=== PATIENT | female | born 1975 | race Caucasian/White ===

== ENCOUNTER 2019-04-28 14:10 | Inpatient (IN) ==
--- NOTE | 2019-04-28 15:11 | Diag Imaging Result Doc PS360 ---
EXAM: FOOT COMPLETE LEFT HISTORY: diabetic foot ulcer TECHNIQUE: Three views COMPARISON: None. FINDINGS: Soft tissue ulcer near the first metatarsal phalangeal joint. Lucent bone in the distal first metatarsal and proximal portion of the proximal phalanx of the great toe. Mild arthritis. IMPRESSION: Lucent bone about the first metatarsal phalangeal joint may represent osteomyelitis. MRI is recommended. Electronically signed by Jaden Henderson 04/28/2019 3:09 PM
[2019-04-28 15:26] LABS: BASO# 0.12 X1000 (0.0-0.2); BASO% 1.4 % (0.0-0.8); EOS# 0.31 X1000 (0.0-0.7); EOS% 3.7 % (0.0-10.0); HEMATOCRIT 44.1 % (37.0-47.0); IMM GRAN# 0.02 X1000 (0.0-0.04); IMM GRAN% 0.2 % (0.0-0.5); LYMPH# 2.19 X1000 (1.2-3.4); LYMPH% 26.2 % (20.5-51.1); MCH 26.6 PG (27-31); MCHC 31.7 g/dL (33-37); MCV 83.8 FL (81-99); MONO# 0.78 X1000 (0.11-0.59); MONO% 9.3 % (1.7-9.3); MPV 11.2 FL (7.4-10.4); NEUT# 4.93 X1000 (1.4-6.5); NEUT% 59.2 % (42.2-75.2); PLT 248 X1000 (130-400); RBC 5.26 XMIL (4.2-5.4); WBC 8.35 X1000 (4.8-10.8)
[2019-04-28 15:35] LABS: ESTIMATED GFR > 60
[2019-04-28 15:58] LABS: AGAP 16; ALKALINE PHOSPHATASE 120 U/L (32-104); BUN 8 mg/dL (8-22); CALCIUM 9.6 mg/dL (8.8-10.2); CHLORIDE 84 mmol/L (98-107); COSMO 283; CREATININE 0.7 mg/dL (0.5-0.9); GLUCOSE 289 mg/dL (70-104); GOT 13 U/L (10-30); GPT 7 U/L (10-36); SODIUM 137 mmol/L (136-145); TCO2 38 mmol/L (25-35); TOTAL PROTEIN 8.8 g/dL (6.3-8.3)
[2019-04-28 15:59] LABS: POTASSIUM 2.5 mmol/L (3.5-5.1)
[2019-04-28] MEDS ORDERED: KLOR-CON PO ONE (16:22)
--- NOTE | 2019-04-28 16:29 | PROVIDER DOCUMENTATION ---
This chart was entered by Akua Craig Scribe, acting as scribe for Teena Horn MD. HPI-Rash/Wound/ReCheck - General Chief Complaint: Sores/Lesions Stated Complaint: ULCER OF RIGHT FOOT Time Seen by Provider: 04/28/19 14:32 Source: patient, family Allergies/Adverse Reactions: Allergies Allergy/AdvReac Type Severity Reaction Status Date / Time Penicillins Allergy ANAPHYLAXIS Verified 04/28/19 14:24 Sulfa (Sulfonamide AdvReac Unknown Verified 04/28/19 14:24 Antibiotics) - History of Present Illness-Dermatology Nature of Presenting Problem: 44 yowf presents to the ed with c/o diabetic foot ulceration that is chronic and skin breakdown of medial region of great toe. pt sts has recently been dc from [facility] after reciving IV abx but has had no improvement of wound Location: reports: feet (left) Quality: reports: painful Severity: reports: moderate Onset/Duration: reports: other (4 years) Timing: reports: still present, constant Context/Associated Symptoms: reports: lesion Locality of Occurance: Home Similar Symptoms Previously?: Yes (been 4 years with same wound) Recently seen or treated by another doctor?: Yes ([facility]) Review of Systems - Adult - REVIEW OF SYSTEMS - ADULT Constitutional: denies: chills, fever Eyes: reports: no symptoms reported Ears, Nose, Mouth & Throat: reports: no symptoms reported Cardiovascular: denies: chest pain, palpitations, syncope Respiratory: denies: cough, shortness of breath, wheezing Gastrointestinal: denies: diarrhea, nausea, vomiting Genitourinary: reports: no symptoms reported Musculoskeletal: denies: back pain, neck pain Integumentary: reports: see HPI, skin sores/ulcer Neurological: denies: dizziness/vertigo, headache/migraines Psychiatric: reports: no symptoms reported Endocrine: reports: no symptoms reported Hematologic/Lymphatic: reports: no symptoms reported Allergic/Immunologic: reports: no symptoms reported All Other Systems: Reviewed and Negative Past History - Adult - PAST MEDICAL HISTORY-ADULT Review of Records: reports: Old Records Reviewed, Nursing Assessment Review, Medications Reviewed, Social history reviewed & non-contributory. Major Childhood Illnesses: reports: denies history Cardiovascular: reports: denies history Respiratory: reports: denies history Gastrointestinal: reports: denies history Obstetrical/Gynecological: reports: denies history Genitourinary: reports: denies history Musculoskeletal: reports: denies history Hand Dominance: Right Handed Neurological: reports: denies history Psychiatric: reports: denies history Endocrine/Immune: reports: Diabetes Diabetes Type: Type 2 Other Conditions: reports: denies history - PRIOR SURGERIES/PROCEDURES Surgical/Procedure History: reports: hysterectomy, - IMMUNIZATION STATUS Childhood Immunizations: See Nurse Assessment Flu Vaccine: See Nurse Assessment - FAMILY HISTORY Family History: reviewed, not pertinent - SOCIAL HISTORY Smoking: cigarettes, less than 1 pack/day Provider spent 3-5 mins advising pt. on dangers of tobacco.: Discussed manners to quit use, and f/u contacts for add'l counseling. Substance Use: denies Living Situation: family Physical Exam-General - PHYSICAL EXAM-ADULT Initial Vital Signs Reviewed: Yes - CONSTITUTIONAL General Appearance: appears well, alert, no apparent distress - EYES Eyes: PERRL/EOMI, pink conjunctivae - HEAD, EARS, NOSE, MOUTH & THROAT HENMT: moist mucous membranes - NECK Neck: non-tender, full range of motion, supple - RESPIRATORY Respiratory: chest non-tender, lungs clear, normal breath sounds - CARDIOVASCULAR Cardiovascular: normal peripheral pulses, regular rate, rhythm - CHEST (BREASTS) Chest/Breast: deferred - GASTROINTESTINAL (ABDOMEN) Abdominal Exam: normal bowel sounds, non tender, soft - GENITOURINARY Female Genitalia/Pelvic Exam: deferred Rectal Exam: deferred Hemoccult Exam: deferred - LYMPHATIC Lymphatic: no adenopathy - MUSCULOSKELETAL Back Exam: normal inspection, no CVA tenderness, no vertebral tenderness Extremity: normal range of motion, erythema, pedal edema, swelling (left foot), tenderness (left foot and great toe) - SKIN Integumentary: normal color, normal turgor, warm/dry, swelling, tenderness, other (ulceration dime size on bottom of left foot and skin breakdown on medial region of great toe) - NEUROLOGIC Neurologic: grossly normal - PSYCHIATRIC Psych/Mental Status: normal mood/affect, normal thought content, normal thought process, oriented x 3 Progress - PLAN OF CARE/RESULTS Progress/Plan/Lab Results: Vital Signs - 8 hr 04/28/19 14:18 Temperature 98.2 F Pulse Rate 92 H Respiratory Rate 18 Blood Pressure 120/70 O2 Sat by Pulse Oximetry 94 L Laboratory Results - last 24 hr 04/28/19 04/28/19 14:54 14:54 WBC 8.35 RBC 5.26 Hgb 14.0 Hct 44.1 MCV 83.8 MCH 26.6 L MCHC 31.7 L RDW Std Deviation 15.0 H Plt Count 248 MPV 11.2 H Immature Gran % (Auto) 0.2 Neut % (Auto) 59.2 Lymph % (Auto) 26.2 Yates % (Auto) 9.3 Eos % (Auto) 3.7 Baso % (Auto) 1.4 H Immature Gran # (Auto) 0.02 Neut # (Auto) 4.93 Lymph # (Auto) 2.19 Yates # (Auto) 0.78 H Eos # (Auto) 0.31 Baso # (Auto) 0.12 Sodium 137 Potassium 2.5 L* Chloride 84 L Carbon Dioxide 38 H Anion Gap 16 BUN 8 Creatinine 0.7 Estimated GFR/1.73 m2 > 60 BUN/Creatinine Ratio 11 Glucose 289 H Calculated Osmolality 283 Calcium 9.6 Total Bilirubin 0.30 AST 13 ALT 7 L Alkaline Phosphatase 120 H Total Protein 8.8 H Albumin 4.0 Globulin 5.0 Albumin/Globulin Ratio 1.0 Orders Category Date Time Status Admit - [facility] Routine AdmDCTranf 04/28/19 17:02 Active Activity - Up with Assistance ORDERED Care 04/28/19 17:02 Active DVT/PE Risk Assess/Protocol [QM] ORDERED Care 04/28/19 17:02 Active FSBS/Accucheck Result AC + HS Care 04/28/19 17:06 Active Intake and Output-Strict ORDERED Care 04/28/19 17:02 Active Saline Loc NOW Care 04/28/19 14:43 Completed Vital Signs Order Q 8-HR ASSESS Care 04/28/19 17:02 Active Z-Document. for Tele Applied ORDERED Care 04/28/19 17:03 Active Diabetic Diet Diet 04/28/19 17:03 Active FOOT COMPLETE LEFT [RAD] Stat Exams 04/28/19 14:44 Completed MRI LOW EXT JT W/WO CON-RIGHT [MRI] Stat Exams 04/28/19 17:08 Ordered A1C HGB W EST AVG GLUCOSE [CHEM] Routine Lab 04/29/19 05:00 Ordered BLOOD CULTURE [BLDCUL] Stat Lab 04/28/19 15:30 Results CBC WITH DIFF [HEME] Stat Lab 04/28/19 14:54 Completed CBC WITH NO DIFF [HEME] Routine Lab 04/29/19 06:00 Ordered COMPREHENSIVE METABOLIC PANEL [CHEM] Routine Lab 04/29/19 06:00 Ordered COMPREHENSIVE METABOLIC PANEL [CHEM] Stat Lab 04/28/19 14:54 Completed MAGNESIUM [CHEM] Routine Lab 04/29/19 06:00 Ordered TSH Routine Lab 04/29/19 06:00 Ordered WOUND CULTURE INC GRAM STAIN [RM] Stat Lab 04/28/19 17:03 Uncollected Acetaminophen [Tylenol] Med 04/28/19 17:05 Active 650 mg PO Q6H PRN PRN Insulin Lispro ([place]) [Humalog ([place])] Med 04/28/19 21:00 Active See Protocol SUBQ 0700,1100,1600,2100 Levofloxacin [Levaquin] 750 mg Med 04/29/19 18:00 Active 0.9% Sodium Chloride Inj [Ns] 150 ml IV Q24H Ondansetron [Zofran] Med 04/28/19 17:05 Active 4 mg IV Q4-6H PRN PRN Pharmacy Order [Vancomycin IV Per Pharmacy] Med 04/28/19 17:15 Active 1 each MISC DIRECTED Potassium Chloride E.r. [Klor-Con] Med 04/28/19 16:22 Discontinued 40 meq PO NOW ONE Telemetry [OM.EQ] Routine Oth 04/28/19 17:02 Active Transfer/Admit Order [TRANSFER] Routine Transfer 04/28/19 17:10 Completed Result Diagrams: 04/28/19 14:54 04/28/19 14:54 - REASSESSMENT Reassessment #1 Time Reassessed: 15:23 Status: unchanged (dr horn at bedside) - XRAY 1 XRAY: Left XRAY Study: Foot Impression: See EMR Report (EXAM: FOOT COMPLETE LEFT HISTORY: diabetic foot ulcer TECHNIQUE: Three views COMPARISON: None. FINDINGS: Soft tissue ulcer near the first metatarsal phalangeal joint. Lucent bone in the distal first metatarsal and proximal portion of the proximal phalanx of the great toe. Mild arthritis. IMPRESSION: Lucent bone about the first metatarsal phalangeal joint may represent osteomyelitis. MRI is recommended. Electronically signed by Jaden Henderson 04/28/2019 3:09 PM 04/28/19 [id number] Interpreting Physician: Jaden Henderson MD Dictated Date/Time: 04/28/19 1507 cc: Teena Horn MD; None,PCP) - CONSULTS/PCP/HOSPITALIST Notification #1 *Consult/PCP/Hospitalist*: [facility] Time Discussed: 14:41 Consult Disposition: Will see in ED #2 Consult: hospitalist dr oswald Time Discussed: 16:16 Consult Disposition: Will see in ED Departure - Departure Date of Disposition Decision: 04/28/19 Time of Disposition Decision: 16:27 DIAGNOSIS: Ulceration, Tobacco use disorder, Diabetic ulcer of foot associated with diabetes mellitus due to underlying condition, with muscle involvement without evidence of necrosis Diabetes Qualifiers: Diabetes mellitus type: type 2 Diabetes mellitus shelter insulin use: unspecified shelter insulin use status Diabetes mellitus complication status: with other specified complication Qualified Code(s): E11.69 - Type 2 diabetes mellitus with other specified complication Disposition: ADMITTED INPATIENT 09 Certified Medical Emergency: Emergent Condition: Good - Critical Care Note This patient required my direct & personal management of CC.: Yes Total Time (mins): 36 Critical Care Statement: This patient required my direct personal management to treat or rule out processes, the absence of which, could potentiallly result in sudden, clinically significant life or limb threatening deterioration. Attestation - Physician/ JOAO Attestation Patient care was provided by Advanced Practice Provider:: No The physician spent face to face time with patient:: Yes Advanced Practice Provider documentation review:: Supervising physician onsite and consulted in the evaluation and care of this patient. The physician did have a face to face encounter with the patient. This chart was documented by the indicated scribe, (Akua Craig Scribe) and accurately reflects the services I performed and decisions made by me, Teena Horn MD, as attested by the provider's signature.
[2019-04-28] MEDS ORDERED: ZOFRAN IV PRN (17:05)
[2019-04-28] MEDS ORDERED: TYLENOL PO PRN (17:05)
[2019-04-28] MEDS ORDERED: VANCOMYCIN IV PER PHARMACY MISC SCH (17:15)
[2019-04-28] MEDS ORDERED: VANCOMYCIN 1 GM/NS 1 GM/250 ML IVPB IV ONE (18:00)
[2019-04-28] MEDS ORDERED: LEVAQUIN 750 MG/D5W 750 MG/150 ML IVPB IV ONE (18:00)
--- NOTE | 2019-04-28 20:05 | HISTORY AND PHYSICAL ---
CHIEF COMPLAINT: Diabetic ulcer, left foot, chronic. HISTORY OF PRESENT ILLNESS: This is a 44-year-old female with a history of diabetes mellitus and a chronic diabetic ulcer to her left foot that has been present for 4 years. She was actually hospitalized last week and received IV antibiotics. She went back for her checkup today, and as she is having brown drainage to this foot and the wound does look worse, home health advised her to come to the hospital for evaluation. She denies any fevers or chills. The patient reports being followed in the wound clinic at [facility]. I called to obtain cultures and antibiotic history. They report the pts last visit being June 2018. They report attempting to schedule multiple visits since but are unable to reach the patient by phone. The patient states she was told by her PCP that she did not need to follow with the wound clinic anymore, so she did not return their calls. PAST MEDICAL HISTORY: 1. Diabetes mellitus. 2. Chronic ulcer, left foot, with prior osteomyelitis. PAST SURGICAL HISTORY: and hysterectomy. SOCIAL HISTORY: She denies alcohol or illicit drug use. She smokes a half a pack to a pack a day. ALLERGIES: Penicillin, with anaphylaxis, and sulfa with unknown reaction. REVIEW OF SYSTEMS: Discussed with the patient, with pertinent positives stated in the HPI. She denies any syncope, dizziness, chest pain, palpitations, shortness of breath, cough, fever or chills, any nausea, vomiting, diarrhea, constipation, black or bloody vomitus or stools, hematuria, dysuria, frequency or urgency. PHYSICAL EXAMINATION: GENERAL: This is a 44-year-old female who is sitting up on the stretcher in the emergency room in no distress. VITAL SIGNS: Blood pressure is 120/70 with a heart rate of 90, respirations are 18, temperature is 98.2 degrees with O2 saturations 94% on room air. EYES: Pupils equal, round, react to light. EOMs are intact. Sclerae are anicteric. HEENT: Head is normocephalic, atraumatic. Mucous membranes are moist. NECK: Supple, with trachea midline. CARDIOVASCULAR: Regular rate and rhythm. S1 and S2 appreciated. She has no lower extremity edema to her right lower extremity. She does have some left foot edema with some erythema. Calves are nontender bilateral, with peripheral pulses palpable x4 extremities. PULMONARY: Breath sounds are clear. No increased work of breathing noted. Chest rises and falls symmetric with respiration. GASTROINTESTINAL: Abdomen is soft, nontender, nondistended. Bowel sounds in all 4 quadrants. NEUROLOGIC: She is alert and oriented x3. SKIN: Warm and dry. Left foot is edematous. There is some erythema. She does have an approximately dime-sized ulceration to the bottom of her left foot, as well as ulceration to the medial region of her great toe with brown drainage noted. LABORATORY DATA: WBC is 8.3 with hemoglobin 14, hematocrit 44.1, and platelets 248,000. Sodium 137, potassium 2.5, BUN 8, creatinine 0.7, with a glucose of 289. Urine and blood cultures are pending. ASSESSMENT AND PLAN: 1. Chronic wound with reported osteomyelitis, left foot. Wound culture has been ordered. We will give antibiotic coverage of vancomycin dosed per pharmacy and Levaquin. We will consult Wound Care. MRI of the left foot has been ordered. 2. Diabetes mellitus. Pattern blood glucose with sliding scale insulin. We will check a hemoglobin A1c. 3. Hypokalemia. We will replenish potassium and trend labs. Replete as appropriate. 4. Hypertension. We will identify her home medications, continue as appropriate and trend her labs. 5. We will check a TSH, magnesium, CBC and CMP in the morning. The patient was evaluated with Dr. Oglesby. Plan was discussed with Dr. Oglesby. Further treatments pending hospital course. Dictated by NADIR Montgomery for Sam Oglesby MD cc: NADIR Montgomery MD [facility]
--- NOTE | 2019-04-28 20:15 | HISTORY AND PHYSICAL ---
ADDENDUM: Patient seen and examined by myself. Full note dictated and discussed with nurse practitioner. Patient presented to the hospital at the persistence of her wound home therapy nurse. Notes that as she had been followed in the past because she has osteomyelitis in her right foot. She has been antibiotics for this for quite some time. But she has recently stopped antibiotics a few months ago. Noted that her foot was healing. However, she notes that she went fishing and walk around a lot a couple months ago and since then it has broken open and it has continued to worsen. We are going to admit her to the hospital. Check an MRI on her foot. Continue to follow. Continue antibiotics, pain control. cc: Sam Oglesby MD
[2019-04-28] MEDS: HUMALOG (PARKWAY) SUBQ SCH (21:25)
[2019-04-28] MEDS: KLOR-CON PO SCH (23:19)
[2019-04-28] MEDS: SUBOXONE 8 MG/2 MG FILM SL SCH (23:19)
[2019-04-28] MEDS: ELAVIL PO SCH (23:19)
[2019-04-28] MEDS: LYRICA PO SCH (23:19)
[2019-04-28] MEDS: LIPITOR PO SCH (23:19)
[2019-04-28] MEDS: DESYREL PO SCH (23:19)
[2019-04-28] MEDS: GLUCOPHAGE XR PO SCH (23:21)
[2019-04-29] MEDS: VANCOMYCIN 1 GM/NS 1 GM/250 ML IVPB IV SCH ×2 (02:19→14:45)
[2019-04-29] MEDS: LIORESAL PO SCH ×4 (04:38→17:47)
[2019-04-29 05:15] LABS: HEMATOCRIT 43.2 % (37.0-47.0); HEMOGLOBIN 13.2 g/dL (12.0-16.0); MCH 25.8 PG (27-31); MCHC 30.6 g/dL (33-37); MCV 84.5 FL (81-99); RBC 5.11 XMIL (4.2-5.4); RDW 15.1 % (11.5-14.5); WBC 8.17 X1000 (4.8-10.8)
[2019-04-29 05:37] LABS: AGAP 11; ALBUMIN 3.2 g/dL (3.5-5.0); ALKALINE PHOSPHATASE 102 U/L (32-104); BUN 7 mg/dL (8-22); CALCIUM 9.1 mg/dL (8.8-10.2); CHLORIDE 92 mmol/L (98-107); COSMO 276; CREATININE 0.6 mg/dL (0.5-0.9); ESTIMATED GFR > 60; GLUCOSE 167 mg/dL (70-104); GOT 14 U/L (10-30); GPT 6 U/L (10-36); MAGNESIUM 1.6 mg/dL (1.5-2.7); SODIUM 137 mmol/L (136-145); TCO2 35 mmol/L (25-35); TOTAL PROTEIN 7.6 g/dL (6.3-8.3)
[2019-04-29 05:41] LABS: HEMOGLOBIN A1C 8.5 % (4.8-6.0)
[2019-04-29] MEDS: HUMALOG (PARKWAY) SUBQ SCH ×4 (06:29→21:27)
[2019-04-29] MEDS ORDERED: KLOR-CON PO ONE (06:51)
[2019-04-29] MEDS ORDERED: HYDROCHLOROTHIAZIDE PO SCH (09:00)
[2019-04-29] MEDS ORDERED: NON-FORMULARY MED (Dapagliflozin Propanediol [Farxiga] 10 MG) PO SCH (09:00)
[2019-04-29] MEDS: GLUCOPHAGE XR PO SCH ×2 (09:25→21:27)
[2019-04-29] MEDS: NON-FORMULARY MED PO SCH (09:25)
[2019-04-29] MEDS: KLOR-CON PO SCH ×2 (09:26→21:28)
[2019-04-29] MEDS: SUBOXONE 8 MG/2 MG FILM SL SCH ×2 (09:26→21:28)
[2019-04-29] MEDS: LEXAPRO PO SCH (09:26)
[2019-04-29] MEDS: LYRICA PO SCH ×2 (09:26→21:27)
[2019-04-29] MEDS: LASIX PO SCH (09:26)
[2019-04-29] MEDS: IMDUR PO SCH (09:26)
[2019-04-29] MEDS: PLETAL PO SCH (09:26)
[2019-04-29] MEDS: LEVAQUIN 750 MG in NS 150 ML IV SCH (17:48)
--- NOTE | 2019-04-29 21:08 | PROGRESS NOTE ---
DATE: 04/29/2019 SUBJECTIVE: The patient denies any new complaints. She states that she is feeling okay. Her foot still is tender. It is still being wrapped by Wound Care. OBJECTIVE: Temperature 98 degrees, pulse 94, respiratory rate 20, BP 133/96.General: The patient is awake, very pleasant. She is in no respiratory distress. HEENT: Normocephalic. Neck supple. Cardiovascular: Regular rate. Chest clear. Abdomen soft. Extremities: Moves all extremities. Neurologic: No focal changes. Skin: Her right foot bandage is clean, dry and intact. ASSESSMENT: 1. Osteomyelitis, right foot. 2. Diabetes, poor home control with an A1c of 8.4. 3. Chronic tobacco abuse. 4. Hypokalemia. Potassium is better at 3.0. We will continue to replace. 5. Hypothyroidism. PLAN: We will continue the patient in the hospital. Continue vancomycin and Levaquin until culture and sensitivities are able to be obtained. We will check an MRI of her foot and we will follow. cc: Sam Oglesby MD
[2019-04-29] MEDS: ELAVIL PO SCH (21:27)
[2019-04-29] MEDS: LIPITOR PO SCH (21:28)
[2019-04-29] MEDS: DESYREL PO SCH (21:28)
[2019-04-30] MEDS: VANCOMYCIN 1 GM/NS 1 GM/250 ML IVPB IV SCH ×2 (02:08→15:15)
[2019-04-30 05:02] LABS: HEMATOCRIT 39.6 % (37.0-47.0); HEMOGLOBIN 11.9 g/dL (12.0-16.0); MCH 25.6 PG (27-31); MCHC 30.1 g/dL (33-37); MCV 85.2 FL (81-99); MPV 10.8 FL (7.4-10.4); RBC 4.65 XMIL (4.2-5.4); WBC 9.51 X1000 (4.8-10.8)
[2019-04-30 05:24] LABS: AGAP 10; ALBUMIN 3.2 g/dL (3.5-5.0); ALKALINE PHOSPHATASE 90 U/L (32-104); BUN 10 mg/dL (8-22); CALCIUM 9.1 mg/dL (8.8-10.2); CHLORIDE 92 mmol/L (98-107); COSMO 278; CREATININE 0.7 mg/dL (0.5-0.9); ESTIMATED GFR > 60; GLUCOSE 166 mg/dL (70-104); GOT 10 U/L (10-30); GPT 6 U/L (10-36); POTASSIUM 3.5 mmol/L (3.5-5.1); SODIUM 138 mmol/L (136-145); TCO2 36 mmol/L (25-35); TOTAL PROTEIN 7.2 g/dL (6.3-8.3)
[2019-04-30] MEDS: HUMALOG (PARKWAY) SUBQ SCH ×4 (06:27→21:38)
[2019-04-30] MEDS: LIORESAL PO SCH ×3 (09:57→18:31)
[2019-04-30] MEDS: PLETAL PO SCH (09:57)
[2019-04-30] MEDS: IMDUR PO SCH (09:57)
[2019-04-30] MEDS: SUBOXONE 8 MG/2 MG FILM SL SCH ×2 (09:58→20:55)
[2019-04-30] MEDS: GLUCOPHAGE XR PO SCH ×2 (09:58→20:55)
[2019-04-30] MEDS: LYRICA PO SCH ×2 (09:58→20:56)
[2019-04-30] MEDS: LEXAPRO PO SCH (09:58)
[2019-04-30] MEDS: NON-FORMULARY MED PO SCH (09:58)
--- NOTE | 2019-04-30 17:10 | Diag Imaging Result Doc PS360 ---
EXAM: 3 PHASE BONE SCAN - 04/30/2019 HISTORY: ?osteomyelitis TECHNIQUE: Three phase bone scan. Exam performed using 28.5 mCi technetium 99m MDP administered intravenously. Three-phase exam is performed over the bilateral feet. COMPARISON: 04/28/2019 left foot radiographs FINDINGS: There is early increased flow to the medial left forefoot, and there is increased activity at this location on the blood pooling images. Delayed images show substantial increased activity at the medial left forefoot in the vicinity of the first metatarsal phalangeal joint. This is suspicious for osteomyelitis at the distal first metatarsal and/or base of the proximal phalanx of the great toe, corresponding with the abnormality seen on the recent radiographs. IMPRESSION: Osteomyelitis at the distal first metatarsal and/or base of proximal phalanx of great toe. Electronically signed by Fredi Rivera 04/30/2019 5:08 PM
[2019-04-30] MEDS: LEVAQUIN 750 MG in NS 150 ML IV SCH (18:34)
[2019-04-30] MEDS: ELAVIL PO SCH (20:55)
[2019-04-30] MEDS: LIPITOR PO SCH (20:55)
[2019-04-30] MEDS: DESYREL PO SCH (20:56)
--- NOTE | 2019-04-30 22:04 | PROGRESS NOTE ---
DATE: 04/30/2019 SUBJECTIVE: The patient has no complaints. States her foot still hurts. Denies any fevers or chills. OBJECTIVE: Vital signs: Temperature 98 degrees, pulse 67, BP 110 systolic to 82 systolic over 47 when she is sleeping. General: Patient is awake, alert. She is in no respiratory distress. HEENT: Normocephalic. Neck: Supple. Cardiovascular: Regular rate. Chest: Clear. Abdomen: Soft, nondistended. Extremities: Moves all extremities. Skin: Warm, dry. Her right foot is clean, bandaged. ASSESSMENT: 1. Osteomyelitis, right foot. 2. Diabetes, with poor control. 3. Hypotension. 4. Hypokalemia, resolved. PLAN: Currently, her cultures have been negative, blood and wound cultures. She does have osteomyelitis. We are going to ask Infectious Disease to assist in antibiotic choice. Will touch base with Surgery. She has very good pulses. Hopefully, she will be very diligent about controlling her blood sugar at home. Hopefully, we can discharge home tomorrow. cc: Sam Oglesby MD
[2019-05-01] MEDS: VANCOMYCIN 1 GM/NS 1 GM/250 ML IVPB IV SCH ×2 (02:25→14:32)
[2019-05-01] MEDS: HUMALOG (PARKWAY) SUBQ SCH ×4 (06:07→21:23)
[2019-05-01] MEDS: PLETAL PO SCH (08:43)
[2019-05-01] MEDS: LIORESAL PO SCH ×3 (08:43→17:20)
[2019-05-01] MEDS: LYRICA PO SCH ×2 (08:43→21:23)
[2019-05-01] MEDS: IMDUR PO SCH (08:43)
[2019-05-01] MEDS: GLUCOPHAGE XR PO SCH ×2 (08:43→21:22)
[2019-05-01] MEDS: LEXAPRO PO SCH (08:43)
[2019-05-01] MEDS: NON-FORMULARY MED PO SCH (08:44)
[2019-05-01] MEDS: SUBOXONE 8 MG/2 MG FILM SL SCH ×2 (08:44→21:23)
[2019-05-01] MEDS ORDERED: VANCOMYCIN IV PER PHARMACY MISC SCH (10:15)
--- NOTE | 2019-05-01 16:51 | PROGRESS NOTE ---
DATE: 05/01/2019 SUBJECTIVE: Patient unfortunately seems quite recalcitrant to treatment. We called [facility], and they note they have not seen Ms. Hubbard in quite some time. She has implied to me today that she has been going on a regular basis, they have been wrapping her foot. This certainly seems to be a false statement per [facility] records. PHYSICAL EXAMINATION: Temperature 98 degrees, pulse 69, respiratory rate 18, BP 109/65.General: Patient is in no current respiratory distress. She is lying in the bed. She is wanting to go home. HEENT: Normocephalic. Neck: Supple. Cardiovascular: Regular rate. Chest: Clear, nonlabored. Abdomen: Soft, nondistended. Extremities: Moves all extremities. Neurologic: No changes. ASSESSMENT: 1. Osteomyelitis of left foot. 2. Medical noncompliance. 3. Diabetes with poor home control. 4. Frequent episodes of hypotension. 5. Hypokalemia. Replaced. PLAN: We had actually anticipated on sending her home today as all of her wound cultures have been negative. However, her most recent wound culture apparently is now growing. This is after the 48-hour milagros in which lab had posted no growth at 48 hours. We therefore are going to restart her antibiotics and will follow. cc: Sam Oglesby MD
[2019-05-01] MEDS ORDERED: LEVAQUIN PO SCH (18:00)
[2019-05-01] MEDS: LIPITOR PO SCH (21:22)
[2019-05-01] MEDS: ELAVIL PO SCH (21:22)
[2019-05-01] MEDS: DESYREL PO SCH (21:22)
[2019-05-02] MEDS: VANCOMYCIN 1 GM/NS 1 GM/250 ML IVPB IV SCH ×2 (02:21→14:25)
[2019-05-02] MEDS: HUMALOG (PARKWAY) SUBQ SCH ×5 (06:53→22:20)
[2019-05-02] MEDS: PLETAL PO SCH (10:25)
[2019-05-02] MEDS: LIORESAL PO SCH ×3 (10:25→17:51)
[2019-05-02] MEDS: NON-FORMULARY MED PO SCH (10:26)
[2019-05-02] MEDS: SUBOXONE 8 MG/2 MG FILM SL SCH ×2 (10:26→21:04)
[2019-05-02] MEDS: GLUCOPHAGE XR PO SCH ×2 (10:26→21:04)
[2019-05-02] MEDS: IMDUR PO SCH (10:26)
[2019-05-02] MEDS: LYRICA PO SCH ×2 (10:26→21:03)
[2019-05-02] MEDS: LEXAPRO PO SCH (10:26)
--- NOTE | 2019-05-02 13:43 | PROGRESS NOTE ---
DATE: 05/02/2019 SUBJECTIVE: The patient has no new complaints. States that she wants to go home. PHYSICAL EXAM: Temperature 97 degrees, pulse 62, respiratory rate 18, BP 103/49.General: Patient is awake. She is pleasant. She is in no respiratory distress. HEENT: Normocephalic. Neck: Supple. Cardiovascular: Regular rate. Chest: Clear. Abdomen: Soft. Extremities: Moves all extremities. Her left foot bandage is clean, dry, intact. ASSESSMENT: 1. Osteomyelitis, left foot. 2. Chronic tobacco abuse. 3. Diabetes with poor home control. 4. Hypotension, resolved. 5. Gram-positive cocci growing in her wound. 6. Hypokalemia, resolved. PLAN: We restarted vancomycin and cancelled her discharge as her culture did start growing after 48 hours. I had a very lengthy discussion with Ms. uHbbard this morning regarding options. Discussed with her that it is fully her choice. She gets to decide if smoking is more important to her than keeping her foot fully intact. Discussed the likelihood that smoking decreases wound healing and increases the opportunity for her to have amputations and possibly a midfoot resection. The patient's history is somewhat difficult to follow. She notes that she has not been to wound clinic since June, states that her doctor told her not to go back, that everything was healing nicely. However, the Wound Clinic notes that they have called her and spoken to her and attempted to get her to come back to continue healing her wounds. Regardless, she has not been there since June. cc: Sam Oglesby MD
[2019-05-02] MEDS: DESYREL PO SCH (21:03)
[2019-05-02] MEDS: LIPITOR PO SCH (21:04)
[2019-05-02] MEDS: ELAVIL PO SCH (21:04)
[2019-05-03] MEDS: VANCOMYCIN 1 GM/NS 1 GM/250 ML IVPB IV SCH (01:12)
[2019-05-03 06:25] VITALS: BP 106/70
[2019-05-03] MEDS: HUMALOG (PARKWAY) SUBQ SCH ×2 (06:31→12:25)
[2019-05-03] MEDS: LIORESAL PO SCH (09:04)
[2019-05-03] MEDS: IMDUR PO SCH (09:04)
[2019-05-03] MEDS: LYRICA PO SCH (09:04)
[2019-05-03] MEDS: KLOR-CON PO SCH (09:04)
[2019-05-03] MEDS: NON-FORMULARY MED PO SCH (09:04)
[2019-05-03] MEDS: GLUCOPHAGE XR PO SCH (09:05)
[2019-05-03] MEDS: LASIX PO SCH (09:05)
[2019-05-03] MEDS: PLETAL PO SCH (09:05)
[2019-05-03] MEDS: SUBOXONE 8 MG/2 MG FILM SL SCH (09:05)
[2019-05-03] MEDS: LEXAPRO PO SCH (09:06)
[2019-05-03] MEDS ORDERED: DOXYCYCLINE PO SCH (09:45)
[2019-05-03 10:14] LABS: HEMATOCRIT 39.2 % (37.0-47.0); HEMOGLOBIN 11.9 g/dL (12.0-16.0); MCH 25.8 PG (27-31); MCHC 30.4 g/dL (33-37); MPV 11.2 FL (7.4-10.4); RBC 4.61 XMIL (4.2-5.4); RDW 15.2 % (11.5-14.5); WBC 9.94 X1000 (4.8-10.8)
[2019-05-03 10:35] LABS: AGAP 11; BUN 7 mg/dL (8-22); CALCIUM 9.3 mg/dL (8.8-10.2); CHLORIDE 99 mmol/L (98-107); COSMO 282; CREATININE 0.6 mg/dL (0.5-0.9); ESTIMATED GFR > 60; GLUCOSE 187 mg/dL (70-104); POTASSIUM 3.5 mmol/L (3.5-5.1); SODIUM 140 mmol/L (136-145); TCO2 30 mmol/L (25-35)
--- NOTE | 2019-05-03 16:45 | DISCHARGE SUMMARY ---
ADMISSION DATE: 04/28/2019 DISCHARGE DATE: 05/03/2019 DIAGNOSES: 1. Osteomyelitis, left foot. 2. Diabetes with poor home control. 3. Methicillin sensitive Staphylococcus aureus, left foot wound. 4. Hypertension. 5. Hypokalemia, replaced. 6. Medical noncompliance. DIAGNOSTICS: 1. Left foot x-ray revealed lucent bone about the 1st metatarsophalangeal joint. May represent osteomyelitis. MRI is recommended. 2. Bone scan 3-phase, left foot. Osteomyelitis at the distal 1st metatarsal and/or base of proximal phalanx of great toe. MICROBIOLOGY: 1. Blood cultures x2 revealed no growth after 48 hours. 2. Wound culture, left foot, revealed methicillin sensitive Staphylococcus aureus. HOSPITAL COURSE: Ms. Hubbard presented to the emergency room complaining of a chronic ulcer to her left foot. She stated she had actually been hospitalized a week prior and received IV antibiotics, that on checkup she was having drainage to the foot and told to come to the hospital. She was found to have methicillin sensitive Staphylococcus aureus growing for which she was initially covered with vancomycin and Levaquin and will be transitioned to doxycycline on discharge. Bone scan revealed osteomyelitis at the distal 1st metatarsal and/or base of the proximal phalanx of the great toe on her left foot. Ms. Hubbard had stated that she was being followed by [facility]. I called to obtain culture results and antibiotic treatments. They stated that Ms. Hubbard had not been seen since June, that they had called multiple times trying to get her to come back in, and she would not answer the phone or answer their voice mail. When asked about this, Ms. Hubbard informed Dr. Oglesby that her primary care physician told her that she did not need to go to the [facility]. Therefore, she did not answer them. It was discussed with Ms. Hubbard that she did in fact need to follow up with her physician as well as the [facility] as she did not want to have amputations, up to possibly a midfoot section of this left foot. We also discussed the fact that smoking decreases wound healing, and that would increase the opportunity to have amputations, and two family members were present during this discussion. At this time the patient stated she had no intentions of stopping smoking. The family members as well as the patient did voice understanding of our discussion. DISCHARGE VITAL SIGNS: Blood pressure is 106/70 with a heart rate of 65, respirations 16. Temperature is 98 degrees oral with room air saturations 95 to 96%. DISCHARGE PHYSICAL EXAMINATION: Cardiovascular: Regular rate and rhythm. S1 and S2 appreciated. She has some pedal edema. Calves are nontender with peripheral pulses x4 extremities. Pulmonary: Breath sounds are clear with no increased work of breathing noted. Gastrointestinal: Abdomen is soft, nontender, nondistended with bowel sounds in all 4 quadrants. Neurologic: She is alert and oriented x3. Skin: Warm and dry. DISCHARGE MEDICATIONS: 1. Trazodone 50 mg p.o. at bedtime. 2. Pregabalin 300 mg p.o. b.i.d. 3. Potassium 20 mEq p.o. b.i.d. 4. Metformin 1000 mg p.o. b.i.d. 5. Isosorbide mononitrate 30 mg p.o. daily. 6. Hydrochlorothiazide 25 mg p.o. daily. 7. Furosemide 40 mg p.o. daily. 8. Lexapro 10 mg p.o. daily. 9. Farxiga 10 mg p.o. daily. 10. Suboxone 8 mg/2 mg 1 sublingual b.i.d. 11. Baclofen 10 mg p.o. b.i.d. 12. Lipitor 10 mg p.o. at bedtime. 13. Elavil 25 mg p.o. at bedtime. 14. Doxycycline 100 mg p.o. b.i.d. x30 days. FOLLOW-UP: 1. [facility] [place]. The patient has been instructed to call Saturday to schedule an appointment. 2. Satish Coffman, nurse practitioner. She is to call Saturday to schedule an appointment. She has been instructed to call to be seen sooner or return to the ER for any syncope, dizziness, chest pain, palpitations, shortness of breath, cough, temperature greater than 101, any chills, any nausea, vomiting, diarrhea, constipation, black or bloody vomitus or stools, hematuria, dysuria, frequency, urgency. She is being discharged home in stable condition with family members. TIME SPENT: This is a greater than 30 minute discharge. Dictated by NADIR Montgomery for Sam Oglesby MD cc: NADIR Montgomery MD Kevin Campbell, [facility]
--- NOTE | 2019-05-04 03:51 | DISCHARGE SUMMARY ---
ADMISSION DATE: 04/28/2019 DISCHARGE DATE: 05/03/2019 ADDENDUM: Patient seen and examined by myself. Full note dictated and discussed with nurse practitioner. On discharge, patient is awake, alert. She is in no distress. She does have methicillin sensitive Staph aureus in her foot. She has left midfoot osteomyelitis. Discussed with her on multiple occasions the importance of keeping her blood sugars under control of stopping smoking and following up outpatient with wound treatment regarding her left foot. The patient states that she understands and will follow. We are also going to discharge her home on doxycycline. cc: Sam Oglesby MD
== END 2019-05-03 11:55 | disposition home or self-care (01) | DRG 638 ==
LOC: P.ED 14:10 → P.MEDSURG 17:28
PROVIDERS: ATTEND Family Medicine